=== PATIENT | female | born 1940 | race Caucasian/White ===

== ENCOUNTER → 2018-11-09 | Outpatient (CLI) | payer OTHER ==
[~2018-11-09] MED LIST: ALLOPURINOL 30300 M1 PO; ASA5UEC PO; ASPIRIN81 M2 PO; ATORVASTATIN CA40 MG PO; CELEXA 20 MG TA20 MG PO; COLACE100 MG PO; COZAAR 50 MG TA50 M1 PO; GLUCOPHAGE XR750 MG PO; HYDROCHLOROTHIA25 M1 PO; HYDROCODONE-AP1 EAC6 PO; MAGOX 400400 MG PO; METAMUCIL PAC1 UDPKT PO; MINOCIN100 MG PO; OSTEO BI-FLEX1 EACH PO; OXYCODONE HCL 55 MG PO; OXYCONTIN10 M1 PO; PRILOSEC 20 MG20 MG PO; PRILOSEC40 MG PO; SIMVASTATIN20 MG PO; ULTRAM 50MG TAB50 MG PO; VITAMIN D1000 UNI1 PO; XARELTO10 M1 PO; [UNRECOGNIZED DRUG - CODE] PO
--- NOTE | 2018-11-09 16:13 | 2DMMODE ---
[place] [address] 2 D/M-MODE ECHOCARDIOGRAM Name: ELISSAELSCAR ALBA Room: [facility]#: [id number] Admission: 11/09/18 Attend Phys: Vamshi Rodgers Discharge: Date of : 40 Date of Service: 11/09/18 1613 Report #: [id number] THIS REPORT FOR: //name// APPROVED REPORT Study performed: 11/09/2018 13:52:40 EXAM: Comprehensive 2D, Doppler, and color-flow Echocardiogram Patient Location: Out-Patient Status: routine BSA: 1.91 HR: 92 bpm BP: 104/65 mmHg Other Information Study Quality: Fair Indications Dyspnea 2D Dimensions IVSd: 10.68 (7-11mm) LVOT Diam: 20.10 (18-24mm) LVDd: 39.88 mm PWd: 11.46 (7-11mm) Ascending Ao: 30.41 (22-36mm) LVDs: 27.18 (25-40mm) Aortic Root: 27.02 mm Volumes Left Atrial Volume (Systole) LA ESV Index: 16.00 mL/m2 Aortic Valve AoV Peak Zoran.: 1.89 m/s AO Peak Gr.: 14.36 mmHg LVOT Max P.74 mmHg AO Mean Gr.: 8.13 mmHg LVOT Mean P.96 mmHg LVOT Max V: 1.78 m/s AO V2 VTI: 37.42 cm LVOT Mean V: 1.24 m/s HENNY (VTI): 3.34 cm2 LVOT V1 VTI: 39.41 cm Mitral Valve E/A Ratio: 0.81 MV Decel. Time: 348.09 ms MV E Max Zoran.: 1.13 m/s MV PHT: 100[place]94 [place] [address] 2 D/M-MODE ECHOCARDIOGRAM Name: EL BOWERS PARTH Room: [facility]#: [id number] Admission: 11/09/18 Attend Phys: Vamshi Rodgers Discharge: Date of : 40 Date of Service: 11/09/18 1613 Report #: [id number] MVA (PHT): 2.18 cm2 TDI E/Lateral E': 18.83 E/Medial E': 11.30 Medial E' Zoran.: 0.10 m/s Lateral E' Zoran.: 0.06 m/s Pulmonary Valve PV Peak Zoran.: 1.20 m/s PV Peak Gr.: 5.77 mmHg Left Ventricle The left ventricle is normal size. There is normal LV segmental wall motion. There is normal left ventricular wall thickness. Left ventricular systolic function is normal. The left ventricular ejection fraction is within the normal range. LVEF is 65-70%. Grade I - abnormal relaxation pattern. Right Ventricle The right ventricle is normal size. The right ventricular systolic function is normal. Atria The left atrium size is normal. The right atrium size is normal. Aortic Valve The aortic valve is normal in structure. Aortic valve is not well visualized. No aortic regurgitation is present. There is no aortic valvular stenosis. Mitral Valve The mitral valve is normal in structure. There is no mitral valve regurgitation noted. No evidence of mitral valve stenosis. Tricuspid Valve The tricuspid valve is normal in structure. There is no tricuspid valve regurgitation noted. Pulmonic Valve The pulmonary valve is normal in structure. There is no pulmonic valvular regurgitation. Great Vessels The aortic root is normal in size. IVC is normal in size and collapses >50% [place] [address] 2 D/M-MODE ECHOCARDIOGRAM Name: EL BOWERS Room: [facility]#: [id number] Admission: 11/09/18 Attend Phys: Vamshi Rodgers Discharge: Date of : 40 Date of Service: 11/09/18 1613 Report #: [id number] Pericardium There is no pericardial effusion. <Conclusion> LVEF is 65-70%. There is normal LV segmental wall motion. Grade I - abnormal relaxation pattern. There is no aortic valvular stenosis. No aortic regurgitation is present. No evidence of mitral valve stenosis. There is no mitral valve regurgitation noted. <ELECTRONICALLY SIGNED> By: Carlitos Boggs MD, FACC 11/09/18 161 [id number] 12 Carlitos Boggs MD, FACC /INF
== END ==
LOC: M.CRD 13:32
DX: R06.00 Dyspnea, unspecified (principal); R53.83 Other fatigue; R06.02 Shortness of breath

== ENCOUNTER → 2019-04-30 | Outpatient (CLI) | payer OTHER | LOC: M.ULTRA 15:30 | DX: R60.0 Localized edema (principal); M79.605 Pain in left leg; M25.562 Pain in left knee ==

== ENCOUNTER → 2020-07-06 | Outpatient (CLI) | payer OTHER | LOC: M.ULTRA 12:00 | PROVIDERS: ATTEND Family Medicine | DX: R22.42 Localized swelling, mass and lump, left lower limb (principal) ==

== ENCOUNTER → 2020-08-02 | Outpatient (CLI) | payer OTHER | LOC: M.MRI 08:16 | PROVIDERS: ATTEND Orthopaedic Surgery | DX: M62.562 Muscle wasting and atrophy, not elsewhere classified, left lower leg (principal); M25.562 Pain in left knee; Z96.652 Presence of left artificial knee joint ==

== ENCOUNTER 2020-09-07 18:37 | Inpatient (IN) | payer OTHER ==
[~2020-09-07] VITALS: Ht 162.6 cm; Wt 98.9 kg
[2020-09-07 19:15] VITALS: BP 122/84
[2020-09-07] MEDS ORDERED: VITAMIN C500 M2 PO (19:22)
[2020-09-07 20:31] LABS: ABSOLUTE BASOPHILS 0.1 thou/uL (0.0-0.2); ABSOLUTE EOSINOPHILS 0.2 thou/uL (0.0-0.7); ABSOLUTE LYMPHOCYTES 2.2 thou/uL (0.8-5.3); ABSOLUTE MONOCYTES 0.9 thou/uL (0.0-1.2); BASOPHILS 0.4 %; EOSINOPHILS 1.3 %; HEMATOCRIT 40.5 % (37.0-47.0); LYMPHOCYTES 16.5 %; MCH 29.1 pg (26.0-34.0); MCHC 32.1 g/dL (28.0-37.0); MCV 90.6 fL (80.0-100.0); MONOCYTES 7.1 %; MPV 7.6 fl. (7.2-11.1); NUCLEATED RBCS 0 /100WBC; PLATELET COUNT* 293 thou/uL (150-400); POLYS 74.7 %; RBC 4.47 mil/uL (4.20-5.00); RDW-CV 15.3 % (10.5-14.5); WBC 13.4 thou/uL (4.0-11.0)
[2020-09-07 20:40] LABS: CALCIUM 9.7 mg/dL (8.5-10.1); CREATININE 1.1 mg/dL (0.6-1.3); POTASSIUM 3.9 mmol/L (3.5-5.1)
[2020-09-07 20:45] LABS: TOTAL BILIRUBIN 0.4 mg/dL (<0.1-1.0); TOTAL PROTEIN 7.8 g/dL (6.4-8.2)
[2020-09-07 21:55] LABS: URINE CLARITY SL HAZY; URINE COLOR DARK YELLOW; URINE SPECIFIC GRAVITY 1.027 (1.005-1.030)
[2020-09-07 21:57] LABS: HYALINE CASTS >10 Many /LPF (None Seen); SQUAMOUS >10 Many /LPF (0-3)
[2020-09-07 21:58] LABS: MUCUS 0-3 Light strn/LPF (None Seen)
[2020-09-07 21:59] LABS: BACTERIA-REFLEX 1-9 Few /HPF (None Seen); URINE RBC 0-2 Rare /HPF (0-2); URINE WBC-REFLEX >25 Many /HPF (0-5); WBC CLUMPS Few (None Seen)
[2020-09-07 22:00] LABS: CRYSTALS None Seen /LPF (None Seen)
[2020-09-08 02:45] VITALS: BP 133/79
[2020-09-08 06:57] VITALS: BP 119/71
[2020-09-08 09:17] LABS: CALCIUM 8.8 mg/dL (8.5-10.1); POTASSIUM 4.4 mmol/L (3.5-5.1)
[2020-09-08 09:20] LABS: MAGNESIUM 1.3 mg/dL (1.8-2.4); PHOSPHORUS* 3.1 mg/dL (2.5-4.9)
--- NOTE | 2020-09-08 09:31 | NUR ---
PT GIVEN BREAKFAST TRAY.
[2020-09-08 11:01] VITALS: BP 108/39
[2020-09-08 15:00] VITALS: BP 115/46
[2020-09-08 18:45] VITALS: BP 115/46
[2020-09-08 20:20] VITALS: BP 130/71
[2020-09-09] VITALS: BP 118/83
--- NOTE | 2020-09-09 00:18 | NUR ---
PATIENT ADMITTED TO FLOOR AT 1900. ORIENTED TO ROOM, ROUTINE, CALL LIGHT. IV LEFT AC WAS OUT AT TRANSFER. IV REPLACED RIGHT FA AND FLUIDS AND KOMAL MAGNESIUM IV INITIATED. VITAL SIGNS STABLE. ADMISSION ROUTINES IN PROGRESS. CONTINUE TO MONITOR.
[2020-09-09 04:00] VITALS: BP 92/45
--- NOTE | 2020-09-09 04:34 | NUR ---
PATIENT HAS REMAINED ALERT AND ORIENTED X 4 THROUGHOUT THE SHIFT AND RESTING QUIETLY ON HOURLY ROUNDS. UP TO BSC WITH GAIT BELT AND CGA. MEDICATED FOR BACK PAIN AT HS. ALSO RECEIVED RESTORIL FOR SLEEP. SOFT BP NOTED AT 0400 CHECK. IVF'S/MEDS PER ORDER. PATIENT REPORTED VAGINAL DISCHARGE AT ADMISSION. HANS-PAD PROVIDED. NOTED MIN AMT YELLOWISH DISCHARGE ON OLD PAD. STRONG ODOR. PATIENT STATES SHE HAS BEEN SEEN BY PHYSICIAN AND THERE IS A F/U APPT WITH [facility] FOR SEPTEMBER. PT/OT CONSULTS FOR TODAY. CONTINUE TO MONITOR.
[2020-09-09 04:53] LABS: HEMOGLOBIN 11.3 gm/dL (12.0-15.0); MCH 30.1 pg (26.0-34.0); MCHC 33.3 g/dL (28.0-37.0); MCV 90.5 fL (80.0-100.0); MPV 7.7 fl. (7.2-11.1); RBC 3.76 mil/uL (4.20-5.00); RDW-CV 15.1 % (10.5-14.5)
[2020-09-09 05:37] LABS: ALBUMIN 3.3 g/dL (3.4-5.0); CALCIUM 8.9 mg/dL (8.5-10.1); MAGNESIUM 1.8 mg/dL (1.8-2.4); POTASSIUM 4.2 mmol/L (3.5-5.1); TOTAL BILIRUBIN 0.6 mg/dL (<0.1-1.0); TOTAL PROTEIN 6.8 g/dL (6.4-8.2)
[2020-09-09 08:00] VITALS: BP 108/69
[2020-09-09 12:00] VITALS: BP 110/58
[2020-09-09 16:00] VITALS: BP 130/62
--- NOTE | 2020-09-09 18:50 | NUR ---
RECEIVED REPORT FROM NIGHT RN. ASSUMED CARE OF PT AROUND 0730. PT A&O X4. AM ASSESSMENT AND VITALS COMPLETED CHARTED. PUMPING SUPERVISOR IN PLACE. MEDS PER EMAR. PT REPORTED BACK PAIN - PAIN MANAGED WITH PO PAIN MEDICAICATION WITH PARTIAL RELIEF. HEATING PAD ORDERED AND INDUSTRIAL EDUCATION TEACHER CONTCTED TO BRING K-PAD MOTOR. PT'S VISTED THIS AFTERNOON. US OF PELVIS COMPLTED. PT LOOKING FORWARD TO GOING HOME WHEN ABLE. PT CURRENTLY RESTING IN BED READING HER BOOK. FALL PRECAUTIONS IN PLACE. HOURLY ROUNDING PERFORMED. CALL LIGHT WITHIN REACH.
[2020-09-09 20:00] VITALS: BP 129/50
[2020-09-10] VITALS: BP 104/44
[2020-09-10 04:30] VITALS: BP 139/67
[2020-09-10 04:52] LABS: HEMATOCRIT 32.4 % (37.0-47.0); HEMOGLOBIN 10.6 gm/dL (12.0-15.0); MCH 29.7 pg (26.0-34.0); MCHC 32.7 g/dL (28.0-37.0); MPV 7.8 fl. (7.2-11.1); RBC 3.57 mil/uL (4.20-5.00); RDW-CV 15.2 % (10.5-14.5); WBC 9.8 thou/uL (4.0-11.0)
--- NOTE | 2020-09-10 05:03 | NUR ---
ASSUMED CARE OF PT AFTER REPORT AT 1930. PT A&OX4. VSS. PHYSICAL ASSESSMENT COMPLETED AND CHARTED. PT ON RA. PT TRACING SR/PVC ON TELE. PT UPADLIB TO BSC. PT COMPLAINED OF LOWER BACK & RIGHT HIP PAIN-MED GIVEN PER JAN. HEATING PAD APPLIED. CALL LIGHT WITHIN REACH.
[2020-09-10 05:13] LABS: ALBUMIN 3.1 g/dL (3.4-5.0); MAGNESIUM 1.5 mg/dL (1.8-2.4); POTASSIUM 4.3 mmol/L (3.5-5.1); TOTAL BILIRUBIN 0.4 mg/dL (<0.1-1.0); TOTAL PROTEIN 6.5 g/dL (6.4-8.2)
[2020-09-10 08:00] VITALS: BP 138/56
[2020-09-10 12:00] VITALS: BP 123/44
[2020-09-10 16:00] VITALS: BP 147/53
--- NOTE | 2020-09-10 18:52 | NUR ---
RECEIVED REPORT. ASSUMED CARE OF PT AROUND 0730. AM ASSESSMENT AND VITALS COMPLETED CHARTED. CARIAC MONITOR IN PLACE. MEDS PER EMAR. BACK PAIN MANAGED WITH PO PAIN MEDS AND HEATING PAD WITH PARTIAL RELIEF. PT COMPLETED CT OF THE LUMBAR SPINE TODAY. US OF BLE ORDERED WELL. PT ABLE TO SHOWER THIS AFTERNOON. PT CURRENTLY RESTING IN BED READING HER BOOK. LOW FALL RISK PRECAUTIONS IN PLACE. HOURLY ROUNDING PERFORMED. CALL LIGHT IS WITHIN REACH.
[2020-09-10 20:00] VITALS: BP 136/56
[2020-09-11] VITALS: BP 121/43
[2020-09-11 04:00] VITALS: BP 113/47
--- NOTE | 2020-09-11 06:52 | NUR ---
ASSUMED CARE OF PT AFTER REPORT AT 1930. PT A&OX4. VSS. PHYSICAL ASSESSMENT COMPLETED AND CHARTED. PT ON RA. PT TRACING SR/1ST DEG/PVC ON TELE. PT UPADLIB TO BSC. PT COMPLAINED OF LOWER BACK & RIGHT HIP PAIN-MED GIVEN PER JAN. MAGNESIUM 1.6 THIS AM. ELECTROLYTE PROTOCOL IN PLACE. CALL LIGHT WITHIN REACH.
[2020-09-11 08:00] VITALS: BP 110/48
[2020-09-11] MEDS ORDERED: CEFDINIR300 MG PO (09:53)
[2020-09-11] MEDS ORDERED: FLEXERIL PO (10:26)
[2020-09-11] MEDS ORDERED: HYDROCODON-ACE1 EAC7 PO (10:27)
[2020-09-11] MEDS ORDERED: LORCET 5-325 M1 EACH PO (10:29)
[2020-09-11] MEDS ORDERED: ELIQUIS5 M1 PO (11:27)
[2020-09-11] MEDS ORDERED: ELIQUIS5 MG PO (11:28)
[2020-09-11 12:00] VITALS: BP 107/41
[2020-09-11 12:41] VITALS: BP 110/48
--- NOTE | 2020-09-11 13:45 | NUR ---
RECEIVED REPORT FROM NIGHT RN. ASSUMED CARE OF PT AROUND 0730. PT A&O X4. AM ASSESSMENT AND VITALS COMPLETED CHARTED. MEDS PER EMAR. DRUG SAFETY ASSOCIATE IN PLACE. DOCTORS ROUNDED, DISCHARGE ORDERS RECEIVED. US BLE COMPLETED - PT DOES HAVE DVT IN RLE. BLOOD THINNER PRESCRIBED. DISCHARGE COMPLETED CHARTED AND GONE OVER WITH THE PT, PT COMMUNICATES UNDERSTANDING. PT AWARE OF FOLLOW UP APPOINTMENTS AND TO E[facility] SCRIPTS FROM PHARMACY. ALL BELONGINGS GATHERED AND SENT OUT WITH PT. IV AND DRUG SAFETY ASSOCIATE REMOVED. PT LEFT UNIT IN WC WITH NURSING STAFF. PT LEFT HOSPITAL IN CAR WITH SPOUSE.
== END 2020-09-11 13:39 | disposition home or self-care (01) | DRG 871 ==
LOC: M.ERS 18:37 → M.TBA-ER 22:41 → M.2W 09-08 08:32 → M.TBA-ER 09-08 08:32 → M.2W 09-08 19:00
PROVIDERS: Personal Emergency Response Attendant; ADMIT Family Medicine; ATTEND Family Medicine
DX: A41.9 Sepsis, unspecified organism (principal); G93.41 Metabolic encephalopathy; N17.0 Acute kidney failure with tubular necrosis; N10 Acute pyelonephritis; E11.9 Type 2 diabetes mellitus without complications; M54.5 Low back pain; K21.9 Gastro-esophageal reflux disease without esophagitis; M47.816 Spondylosis without myelopathy or radiculopathy, lumbar region; E78.00 Pure hypercholesterolemia, unspecified; Z96.651 Presence of right artificial knee joint; Z20.828 Contact with and (suspected) exposure to other viral communicable diseases; Z90.49 Acquired absence of other specified parts of digestive tract; Z90.710 Acquired absence of both cervix and uterus; Z86.711 Personal history of pulmonary embolism; Z79.84 Long term (current) use of oral hypoglycemic drugs; Z79.899 Other long term (current) drug therapy; Z88.5 Allergy status to narcotic agent; Z23 Encounter for immunization

== ENCOUNTER → 2020-12-26 | Outpatient (CLI) | payer OTHER ==
[~2020-12-26] MED LIST changes: +CEFDINIR300 MG PO; +ELIQUIS5 M1 PO; +ELIQUIS5 MG PO; +FLEXERIL PO; +HYDROCODON-ACE1 EAC7 PO; +LORCET 5-325 M1 EACH PO; +VITAMIN C500 M2 PO
--- NOTE | 2020-12-26 14:10 | 2DMMODE ---
[place] [address] 2 D/M-MODE ECHOCARDIOGRAM Name: EL BOWERS Room: [facility]#: [id number] Admission: 12/26/20 Attend Phys: Thanh Ramos MD Discharge: Date of : 40 Date of Service: 12/26/20 1409 Report #: [id number] THIS REPORT FOR: cc: Dutch Venegas,Dutch Tabares,Yuniel Diaz MD [facility] ~ APPROVED REPORT Study performed: 12/26/2020 08:38:55 EXAM: Comprehensive 2D, Doppler, and color-flow Echocardiogram Patient Location: Out-Patient BSA: 1.97 HR: 77 bpm BP: 120/80 mmHg Other Information Study Quality: Good Indications Dyspnea Peripheral Edema 2D Dimensions IVSd: 10.79 (7-11mm) LVOT Diam: 19.94 (18-24mm) LVDd: 40.10 mm PWd: 9.18 (7-11mm) Ascending Ao: 32.45 (22-36mm) LVDs: 28.79 (25-40mm) Aortic Root: 28.65 mm Volumes Left Atrial Volume (Systole) LA ESV Index: 16.30 mL/m2 Aortic Valve AoV Peak Zoran.: 1.88 m/s AO Peak Gr.: 14.17 mmHg LVOT Max P.68 mmHg AO Mean Gr.: 7.47 mmHg LVOT Mean P.48 mmHg LVOT Max V: 1.47 m/s AO V2 VTI: 36.28 cm LVOT Mean V: 0.99 m/s HENNY (VTI): 2.71 cm2 LVOT V1 VTI: 31.47 [place] [address] 2 D/M-MODE ECHOCARDIOGRAM Name: EL BOWERS Room: [facility]#: [id number] Admission: 12/26/20 Attend Phys: Thanh Ramos MD Discharge: Date of : 40 Date of Service: 12/26/20 1409 Report #: [id number] E/A Ratio: 0.75 MV Decel. Time: 327.37 ms MV E Max Zoran.: 0.96 m/s MV PHT: 94.94 ms MVA (PHT): 2.32 cm2 TDI E/Lateral E': 16.00 E/Medial E': 12.00 Medial E' Zoran.: 0.08 m/s Lateral E' Zoran.: 0.06 m/s Pulmonary Valve PV Peak Zoran.: 1.08 m/s PV Peak Gr.: 4.65 mmHg Left Ventricle The left ventricle is normal size. There is normal LV segmental wall motion. There is normal left ventricular wall thickness. Left ventricular systolic function is normal. LVEF is 55-60%. Grade I - abnormal relaxation pattern. Right Ventricle The right ventricle is normal size. The right ventricular systolic function is normal. Atria The left atrium size is normal. The right atrium size is normal. Aortic Valve Mild aortic valve sclerosis. No aortic regurgitation is present. There is no aortic valvular stenosis. Mitral Valve Mild mitral annular calcification. There is no mitral valve regurgitation noted. No evidence of mitral valve stenosis. Tricuspid Valve The tricuspid valve is normal in structure. There is no tricuspid valve regurgitation noted. Pulmonic Valve The pulmonary valve is normal in structure. There is no pulmonic valvular regurgitation. Great Vessels The aortic root is normal in size. IVC is [place] [address] 2 D/M-MODE ECHOCARDIOGRAM Name: EL BOWERS Room: [facility]#: [id number] Admission: 12/26/20 Attend Phys: Thanh Ramos MD Discharge: Date of : 40 Date of Service: 12/26/20 1409 Report #: [id number] collapses >50% with inspiration. Pericardium There is no pericardial effusion. <Conclusion> The left ventricle is normal size. There is normal left ventricular wall thickness. Left ventricular systolic function is normal. LVEF is 55-60%. Grade I - abnormal relaxation pattern. Mild aortic valve sclerosis. There is no aortic valvular stenosis. Mild mitral annular calcification. IVC is normal in size and collapses >50% with inspiration. <ELECTRONICALLY SIGNED> By: Yuniel Vázquez MD, FACC 12/26/20 1409 1409 1409 Yuniel Vázquez MD, FACC /INF
--- NOTE | 2021-01-02 18:54 | PF ---
[address] [address] PULMONARY FUNCTION REPORT Name: EL BOWERS Room: [facility]#: [id number] Admission: 12/26/20 Attend Phys: Thanh Ramos MD Discharge: Date of : 40 Report #: [id number] THIS REPORT FOR: cc: Dutch Venegas Vincent R. DO ~ Thanh Ramos MD DATE OF SERVICE: 12/26/2020 The FEV1/FVC ratio is normal at 77, an FVC normal at 107% and the FEV1 is also normal at 111%. ENP70-71 is normal at 80%. After the administration of a bronchodilator, there is no significant change in any of these values. The patient's post-bronchodilator FEV1 is noted to be 2.21 liters. The total lung capacity is normal at 95%. The residual volume is also normal at 86%. The DLCO as adjusted for hemoglobin is mildly decreased to 78%. The flow volume loop is mildly concave upwards. IMPRESSION: These are essentially normal pulmonary function tests with the exception of mild concavity upwards of the flow volume loop and minimal decrease in DLCO as described above. These could be normal variants or could indicate minimal obstructive lung disease. <ELECTRONICALLY SIGNED> By: Thanh Ramos MD 01/02/21 1854 1746 MD john Wilcox
== END ==
LOC: M.CRD 12-19 09:00
PROVIDERS: ATTEND Internal Medicine Critical Care Medicine
DX: I08.0 Rheumatic disorders of both mitral and aortic valves (principal); I82.401 Acute embolism and thrombosis of unspecified deep veins of right lower extremity

== ENCOUNTER → 2021-03-07 | Outpatient (CLI) | payer OTHER ==
--- NOTE | 2021-03-07 15:21 | 2DMMODE ---
[place] [address] 2 D/M-MODE ECHOCARDIOGRAM Name: EL BOWERSYCE [id number] Admission: 03/07/21 Attend Phys: Marlnea Louie Discharge: Date of : 40 Date of Service: 03/07/21 1520 Report #: [id number] THIS REPORT FOR: cc: Dutch Venegas,Dutch Villalobos,Ariel Vasquez MD [facility] ~ ADDENDUM APPROVED REPORT Study performed: 03/07/2021 12:38:36 EXAM: Comprehensive 2D, Doppler, and color-flow Echocardiogram Patient Location: Out-Patient BSA: 1.93 HR: 70 bpm BP: 130/80 mmHg Other Information Study Quality: Good Indications Dyspnea 2D Dimensions IVSd: 12.09 (7-11mm) LVOT Diam: 20.39 (18-24mm) LVDd: 39.07 mm PWd: 12.62 (7-11mm) Ascending Ao: 27.48 (22-36mm) LVDs: 30.15 (25-40mm) Aortic Root: 30.19 mm Volumes Left Atrial Volume (Systole) LA ESV Index: 14.40 mL/m2 Aortic Valve AoV Peak Zoran.: 1.85 m/s AO Peak Gr.: 13.62 mmHg LVOT Max P.50 mmHg AO Mean Gr.: 7.42 mmHg LVOT Mean P.34 mmHg LVOT Max V: 1.37 m/s AO V2 VTI: 39.99 cm LVOT Mean V: 0.84 m/s HENNY (VTI): 2.37 cm2 LVOT V1 VTI: 28.97 cm Mitral Valve E/A Ratio: 0.72 [place] [address] 2 D/M-MODE ECHOCARDIOGRAM Name: EL BOWERS Room: [facility]#: [id number] Admission: 03/07/21 Attend Phys: Marlena Louie Discharge: Date of : 40 Date of Service: 03/07/21 1520 Report #: [id number] MV Decel. Time: 229.99 ms MV E Max Zoran.: 0.82 m/s MV PHT: 66.70 ms MVA (PHT): 3.30 cm2 TDI E/Lateral E': 11.71 E/Medial E': 9.11 Medial E' Zoran.: 0.09 m/s Lateral E' Zoran.: 0.07 m/s Pulmonary Valve PV Peak Zoran.: 0.90 m/s PV Peak Gr.: 3.27 mmHg Tricuspid Valve RAP Estimate: 5.00 mmHg TR Peak Gr.: 19.50 mmHg RVSP: 24.50 mmHg PA Pressure: 24.50 mmHg Left Ventricle The left ventricle is normal size. There is normal LV segmental wall motion. Mild concentric left ventricular hypertrophy. Left ventricular systolic function is normal. The left ventricular ejection fraction is within the normal range. LVEF is 55-60%. Grade I - abnormal relaxation pattern. Right Ventricle The right ventricle is normal size. The right ventricular systolic function is normal. Atria The left atrium size is normal. The right atrium size is normal. Aortic Valve Mild aortic valve sclerosis. No aortic regurgitation is present. There is no aortic valvular stenosis. Mitral Valve Mild mitral annular calcification. The mitral valve is normal in structure. There is no mitral valve regurgitation noted. No evidence of mitral valve stenosis. Tricuspid Valve The tricuspid valve is normal in structure. Mild [place] [address] 2 D/M-MODE ECHOCARDIOGRAM Name: EL BOWERS Room: [facility]#: [id number] Admission: 03/07/21 Attend Phys: Marlena Louie Discharge: Date of : 40 Date of Service: 03/07/21 1520 Report #: [id number] Pulmonic Valve Pulmonic valve is not well visualized. There is no pulmonic valvular regurgitation. Great Vessels The aortic root is normal in size. IVC is normal in size and collapses >50% with inspiration. Pericardium There is no pericardial effusion. <Conclusion> Mild concentric left ventricular hypertrophy. Mild aortic valve sclerosis. LVEF is 55-60%. <ELECTRONICALLY SIGNED> By: Ariel Bhatia MD, FACC 03/07/21 1520 1520 1520 Ariel Bhatia MD, FACC /INF
== END ==
LOC: M.CRD 12:30
PROVIDERS: ATTEND Internal Medicine
DX: I08.8 Other rheumatic multiple valve diseases (principal)